=== PATIENT | male | born 1975 | race Caucasian/White ===

== ENCOUNTER 2016-10-25 11:07 | Emergency (ER) | payer SELFPAY ==
[~2016-10-25] VITALS: Ht 172.7 cm; Wt 71.7 kg
[2016-10-25] MEDS ORDERED: NKM (11:24)
--- NOTE | 2016-10-25 11:54 | Diagnostic Imaging Report ---
Indication: pain Findings: 3 views of the right hand were obtained. Normal bony mineralization and alignment are demonstrated. No acute fractures, erosions, or periosteal reaction are seen. Soft tissues are unremarkable. Impression: Negative examination of the right hand.
--- NOTE | 2016-10-25 12:09 | Emergency Room Report ---
History of Present Illness General Chief Complaint: Upper Extremity Injury Source: Patient Present Illness HPI 41 YO M with right hand pain s/p dropped exercise equipment on it earlier at gym. Reports ROM on making fist with pain to right 2nd and 3rd metacarpals and pain to ulnar aspect of right wrist. No open wounds. Allergies: Coded Allergies: No Known Allergies (Unverified , 10/25/16) Patient History Past Medical History: none Past Surgical History: none Pertinent Family History: none Social History: Denies: alcohol use, drug use, smoking Immunizations: UTD Reviewed Nursing Documentation: PMH: Agreed, PSxH: Agreed Nursing Documentation-PMH Past Medical History: No Stated History Review of Systems All Other Systems: negative except mentioned in HPI Physical Exam Vital Signs Date Time Temp Pulse Resp B/P Pulse Ox O2 Delivery O2 Flow Rate FiO2 10/25/16 11:10 98.1 79 20 114/74 100 Room Air Sp02 EP Interpretation: reviewed, normal General Appearance: normal inspection, well appearing, no apparent distress, alert Head: atraumatic ENT: normal ENT inspection, hearing grossly normal, normal voice Neck: normal inspection, full range of motion, supple, no bony tend Respiratory: normal inspection, lungs clear, normal breath sounds, no respiratory distress, no retraction, no wheezing Cardiovascular #1: regular rate, rhythm, no edema Gastrointestinal: normal inspection, normal bowel sounds, non tender, soft, no guarding, no hernia Genitourinary: no CVA tenderness Musculoskeletal: other - Right hand: obvious swelling with ttp along right 2nd and 3rd metacarpals Neurologic: normal inspection, alert, oriented x3, responsive, manager android III-XII nml as tested, motor strength/tone normal, speech normal Psychiatric: normal inspection, judgement/insight normal, mood/affect normal Skin: normal inspection, normal color, no rash Medical Decision Making Diagnostic Impression: Primary Impression: Contusion of right hand Qualified Codes: S60.221A - Contusion of right hand, initial encounter ER Course 41 YOM with right hand contusion. VSS. Afebrile Xrays negative for acute injury Advised RICE on DC PMD followup Last Vital Signs Date Time Temp Pulse Resp B/P Pulse Ox O2 Delivery O2 Flow Rate FiO2 10/25/16 11:10 98.1 79 20 114/74 100 Room Air Status: improved Disposition: HOME, SELF-CARE Referrals: NOT CHOSEN IPA/MD,REFERRING (PCP) DAIGNAULT,LUPE M.D. Oct 25, 2016 12:09
[2016-10-25 12:20] VITALS: BP 124/55
== END 2016-10-25 12:22 | disposition home or self-care (01) ==
LOC: EMR 11:44
DX: S60.221A Contusion of right hand, initial encounter (principal); X58.XXXA Exposure to other specified factors, initial encounter; Y93.9 Activity, unspecified; Y92.39 Other specified sports and athletic area as the place of occurrence of the external cause
CPT/HCPCS: 99283